=== PATIENT | male | born 1960 | race Caucasian/White ===

== ENCOUNTER 2018-02-10 03:46 | Emergency (ER) | payer BC, MEDICAID ==
[2018-02-10 04:03] VITALS: BP 160/72
--- NOTE | 2018-02-10 04:28 | EDM.PDOC ---
ED HPI GENERAL MEDICAL PROBLEM - General Chief Complaint: General Stated Complaint: drooling Time Seen by Provider: 02/10/18 04:10 Source of Information: Reports: Patient History Limitations: Reports: No Limitations, Other - History of Present Illness INITIAL COMMENTS - FREE TEXT/NARRATIVE: Patient is a 57-year-old gentleman with known history of a CVA back in October 2017 comes in stating that he has a hard time swallowing his saliva and is drooling at the type patient was evaluated his swallowing mechanism appeared intact able to swallow water at his own secretion with no difficulty Onset: Gradual Duration: Hour(s):, Constant Location: Reports: Generalized Improves with: Reports: None Worsens with: Reports: None Context: Reports: Other (Old CVA) - Related Data Allergies Allergy/AdvReac Type Severity Reaction Status Date / Time No Known Drug Allergies Allergy Other Verified 02/10/18 04:03 Home Meds: Home Meds Albuterol [Ventolin HFA] 2 puff INH Q4H PRN 10/22/17 [History] Aspirin [Kavon Chewable Aspirin] 81 mg PO DAILY 01/04/18 [History] atorvaSTATin [Lipitor] 40 mg PO DAILY 01/04/18 [History] Lisinopril 10 mg PO DAILY 02/09/18 [History] Past Medical History - Past Health History Medical/Surgical History: Denies Medical/Surgical History HEENT History: Reports: Hard of Hearing, Impaired Vision Other HEENT History: Right-sided chronic hearing loss secondary to previous otitis media or infection, patient wears glasses Cardiovascular History: Reports: High Cholesterol, Other (See Below) Other Cardiovascular History: Patient states he has a hole in his heart that needs to be repaired. Respiratory History: Reports: COPD Gastrointestinal History: Reports: Colon Polyp Other Gastrointestinal History: Multiple polypectomies of unknown type as below Genitourinary History: Reports: None Musculoskeletal History: Reports: Arthritis, Back Pain, Chronic, Fracture, Osteoarthritis, Other (See Below) Other Musculoskeletal History: Right ankle fracture in 1989, spina bifida occulta in L5-S1 region Neurological History: Reports: CVA, Headaches, Chronic Other Neuro History: Chronic tension headaches which occur about every 3 months with previous negative CT scan of the head Psychiatric History: Reports: None Endocrine/Metabolic History: Reports: None Hematologic History: Reports: None Immunologic History: Reports: None Oncologic (Cancer) History: Reports: None Dermatologic History: Reports: None - Infectious Disease History Infectious Disease History: Reports: None Other Infectious Disease History: does not think that he did. - Past Surgical History HEENT Surgical History: Reports: Adenoidectomy, Oral Surgery, Tonsillectomy, Other (See Below) Cardiovascular Surgical History: Reports: None Respiratory Surgical History: Reports: None GI Surgical History: Reports: Appendectomy, Colonoscopy, Polypectomy Male Surgical History: Reports: None Endocrine Surgical History: Reports: None Neurological Surgical History: Reports: None Oncologic Surgical History: Reports: None Dermatological Surgical History: Reports: None - Past Imaging History Past Imaging History: Reports: CAT Scan Social & Family History - Family History Family Medical History: Noncontributory Cardiac: Reports: Bypass Endocrine/Metabolic: Reports: IDDM - Tobacco Use Smoking Status *Q: Former Smoker Years of Tobacco use: 42 Packs/Tins Daily: 2 Used Tobacco, but Quit: Yes Month/Year Tobacco Last Used: 2013 Second Hand Smoke Exposure: No - Caffeine Use Caffeine Use: Reports: Coffee, Energy Drinks, Soda, Tea - Alcohol Use Days Per Week of Alcohol Use: 0 - Recreational Drug Use Recreational Drug Use: No Drug Use in Last 12 Months: No - Living Situation & Occupation Living situation: Reports: , Alone Occupation: Employed ED ROS GENERAL - Review of Systems Review Of Systems: See Below Constitutional: Reports: No Symptoms HEENT: Reports: Other (Complains of increased saliva and difficulty swallowing) Respiratory: Reports: No Symptoms Cardiovascular: Reports: No Symptoms Endocrine: Reports: No Symptoms GI/Abdominal: Reports: No Symptoms : Reports: No Symptoms Musculoskeletal: Reports: No Symptoms Skin: Reports: No Symptoms Neurological: Reports: No Symptoms, Other Psychiatric: Reports: Anxiety Hematologic/Lymphatic: Reports: No Symptoms ED EXAM, GENERAL - Physical Exam Exam: See Below Exam Limited By: No Limitations General Appearance: Alert, WD/WN, Anxious Eye Exam: Bilateral Eye: EOMI, PERRL Ears: Normal External Exam, Normal Canal, Hearing Grossly Normal, Normal TMs Ear Exam: Bilateral Ear: Auricle Normal, Canal Normal, TM normal Nose: Normal Inspection, Normal Mucosa, No Blood Throat/Mouth: Normal Inspection, Normal Lips, Normal Teeth, Normal Gums, Normal Oropharynx, Normal Voice, No Airway Compromise Head: Atraumatic, Normocephalic Neck: Normal Inspection, Supple, Non-Tender, Full Range of Motion, Other ( Excellent swallowing mechanism) Respiratory/Chest: No Respiratory Distress, Lungs Clear, Normal Breath Sounds, No Accessory Muscle Use, Chest Non-Tender Cardiovascular: Normal Peripheral Pulses, Regular Rate, Rhythm, No Edema, No Gallop, No JVD, No Murmur, No Rub GI/Abdominal: Normal Bowel Sounds, Soft, Non-Tender, No Organomegaly, No Distention, No Abnormal Bruit, No Mass (Male) Exam: Deferred Rectal (Males) Exam: Deferred Back Exam: Normal Inspection, Full Range of Motion, NT Extremities: Normal Inspection, Normal Range of Motion, Non-Tender, Normal Capillary Refill, No Pedal Edema Neurological: Alert, Oriented, CN II-XII Intact, Normal Cognition, Normal Gait, Normal Reflexes, No Motor/Sensory Deficits Psychiatric: Anxious Skin Exam: Warm, Dry, Intact, Normal Color, No Rash Lymphatic: No Adenopathy Course - Vital Signs Last Recorded V/S: Last Vital Signs Temp 97.6 F 02/10/18 03:55 Pulse 61 02/10/18 03:55 Resp 16 02/10/18 03:55 BP 160/72 H 02/10/18 03:55 Pulse Ox 97 02/10/18 03:55 Departure - Departure Time of Disposition: 04:29 Disposition: Home, Self-Care 01 Condition: Good Clinical Impression: Anxiety about health - Discharge Information Referrals: Linda Reza MD [Primary Care Provider] - Care Plan Goals: Patient will be sent home no CT required at this time required at this time we' ll follow-up with primary will refer to speech pathology for swallowing eval
== END 2018-02-10 04:40 | disposition home or self-care (01) ==
LOC: LL.ED 03:46
DX: F41.9 Anxiety disorder, unspecified (principal); E78.00 Pure hypercholesterolemia, unspecified; J44.9 Chronic obstructive pulmonary disease, unspecified; Z86.73 Personal history of transient ischemic attack (TIA), and cerebral infarction without residual deficits; Z79.899 Other long term (current) drug therapy; Z79.82 Long term (current) use of aspirin; Z90.49 Acquired absence of other specified parts of digestive tract; Z87.891 Personal history of nicotine dependence
CPT/HCPCS: 99283

== ENCOUNTER 2018-03-12 17:23 | Emergency (ER) | payer BC, MEDICAID ==
[2018-03-12 17:48] VITALS: BP 134/64
[2018-03-12] MEDS ORDERED: Ketorolac 60 MG/2 ML SDV IM ONE (18:20)
--- NOTE | 2018-03-12 19:42 | EDM.PDOC ---
ED HPI GENERAL MEDICAL PROBLEM - General Chief Complaint: Headache Stated Complaint: headache Time Seen by Provider: 03/12/18 18:10 Source of Information: Reports: Patient History Limitations: Reports: No Limitations - History of Present Illness INITIAL COMMENTS - FREE TEXT/NARRATIVE: Patient comes in with migraine headache in the occipital area and neck; patient has had history of migraines in the past Onset: Sudden Duration: Hour(s):, Getting Worse Location: Reports: Head Quality: Reports: Ache, Pressure Severity: Moderate Improves with: Reports: Medication Worsens with: Reports: None Context: Reports: Other (Stress) Associated Symptoms: Reports: No Other Symptoms 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, 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 Headache Pain Score (Numeric/FACES): 6 - Related Data Allergies Allergy/AdvReac Type Severity Reaction Status Date / Time No Known Drug Allergies Allergy Other Verified 02/28/18 07:34 Home Meds: Home Meds Albuterol [Ventolin HFA] 2 puff INH Q4H PRN 10/22/17 [History] Aspirin [Kavon Chewable Aspirin] 81 mg PO DAILY 01/04/18 [History] atorvaSTATin [Lipitor] 40 mg PO DAILY 01/04/18 [History] Lisinopril 10 mg PO DAILY 02/09/18 [History] Past Medical History - Past Health History Medical/Surgical History: Denies Medical/Surgical History HEENT History: Reports: Hard of Hearing, Impaired Vision, Other (See Below) Other HEENT History: Right-sided chronic hearing loss secondary to previous otitis media or infection, patient wears glasses Cardiovascular History: Reports: High Cholesterol, Other (See Below) Other Cardiovascular History: Patient states he has a hole in his heart that needs to be repaired. Respiratory History: Reports: COPD Gastrointestinal History: Reports: Colon Polyp Other Gastrointestinal History: Multiple polypectomies of unknown type as below Genitourinary History: Reports: None Musculoskeletal History: Reports: Arthritis, Back Pain, Chronic, Fracture, Osteoarthritis, Other (See Below) Other Musculoskeletal History: Right ankle fracture in 1989, spina bifida occulta in L5-S1 region Neurological History: Reports: CVA, Headaches, Chronic, Other (See Below) Other Neuro History: Chronic tension headaches which occur about every 3 months with previous negative CT scan of the head Psychiatric History: Reports: None Endocrine/Metabolic History: Reports: None Hematologic History: Reports: None Immunologic History: Reports: None Oncologic (Cancer) History: Reports: None Dermatologic History: Reports: None - Infectious Disease History Infectious Disease History: Reports: None Other Infectious Disease History: does not think that he did. - Past Surgical History HEENT Surgical History: Reports: Adenoidectomy, Oral Surgery, Tonsillectomy GI Surgical History: Reports: Appendectomy, Colonoscopy, Polypectomy - Past Imaging History Past Imaging History: Reports: CAT Scan Social & Family History - Family History Family Medical History: Noncontributory Cardiac: Reports: Bypass Endocrine/Metabolic: Reports: IDDM - Tobacco Use Smoking Status *Q: Former Smoker Used Tobacco, but Quit: Yes Month/Year Tobacco Last Used: 10/21/2014 - Caffeine Use Caffeine Use: Reports: Coffee, Energy Drinks, Soda, Tea - Living Situation & Occupation Living situation: Reports: , Alone Occupation: Employed ED ROS GENERAL - Review of Systems Review Of Systems: ROS reveals no pertinent complaints other than HPI. Constitutional: Reports: Other (headache) - Physical Exam Exam: See Below General Appearance: Alert, WD/WN, No Apparent Distress Ears: Normal External Exam, Normal Canal, Hearing Grossly Normal, Normal TMs Nose: Normal Inspection, Normal Mucosa, No Blood Throat/Mouth: Normal Inspection, Normal Lips, Normal Teeth, Normal Gums, Normal Oropharynx, Normal Voice, No Airway Compromise Head Exam: Atraumatic, Normocephalic Neck: Limited Range of Motion, Tender Lateral Respiratory/Chest: No Respiratory Distress, Lungs Clear, Normal Breath Sounds, No Accessory Muscle Use, Chest Non-Tender Cardiovascular: Normal Peripheral Pulses, Regular Rate, Rhythm, No Edema, No Gallop, No JVD, No Murmur, No Rub GI/Abdominal: Normal Bowel Sounds, Soft, Non-Tender, No Organomegaly, No Distention, No Abnormal Bruit, No Mass (Male) Exam: Deferred Rectal (Males) Exam: Deferred Neuro Exam (Abbreviated): Alert, Oriented, CN II-XII Intact, Normal Cognition, Other (Migraine headache) Back Exam: Normal Inspection, Full Range of Motion, NT Extremities: Normal Inspection, Normal Range of Motion, Non-Tender, No Pedal Edema, Normal Capillary Refill Psychiatric: Normal Affect, Normal Mood Skin Exam: Warm, Dry, Intact, Normal Color, No Rash Course - Vital Signs Last Recorded V/S: Last Vital Signs Temp Pulse 67 03/12/18 17:47 Resp 14 03/12/18 17:47 BP 134/64 03/12/18 17:47 Pulse Ox 100 03/12/18 17:47 - Orders/Labs/Meds Meds: Medications Discontinued Medications Generic Name Dose Route Start Last Admin Trade Name Adis PRN Reason Stop Dose Admin Diazepam 5 mg 03/12/18 18:13 03/12/18 18:31 Valium IM 03/12/18 18:14 Not Given ONETIME ONE Ketorolac Tromethamine 60 mg 03/12/18 18:20 03/12/18 18:30 Toradol IM 03/12/18 18:21 60 mg ONETIME ONE Administration Departure - Departure Time of Disposition: 19:40 Disposition: Home, Self-Care 01 Condition: Good Clinical Impression: Migraine - Discharge Information Instructions: Ketorolac injection, Recurrent Migraine Headache Referrals: Linda Reza MD [Primary Care Provider] - Forms: ED Department Discharge Care Plan Goals: Follow up with your regular doctor as needed for migraines or headaches. Go home and rest tonight.
== END 2018-03-12 19:00 | disposition home or self-care (01) ==
LOC: LL.ED 17:23
DX: G43.909 Migraine, unspecified, not intractable, without status migrainosus (principal); J44.9 Chronic obstructive pulmonary disease, unspecified; E78.00 Pure hypercholesterolemia, unspecified; Z79.82 Long term (current) use of aspirin; Z79.899 Other long term (current) drug therapy; Z87.891 Personal history of nicotine dependence
CPT/HCPCS: 99283; J1885; 96372

== ENCOUNTER 2021-05-15 09:55 | Emergency (ER) | payer OTHER, BC ==
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
[2021-05-15 10:38] LABS: CHLORIDE,CL 109 mmol/L (98-107); SODIUM,NA 143 mmol/L (136-145)
[2021-05-15 10:39] LABS: ANION GAP 11.1 meq/L (7-15)
[2021-05-15] MEDS: Albuterol 0.083% 2.5 MG/3 ML Neb Soln NEB ONE (10:58)
== END 2021-05-15 12:15 | disposition home or self-care (01) ==
LOC: LL.ED 09:55 → SUPCPDRO 09:55 → LL.ED 12:15
DX: S16.1XXA Strain of muscle, fascia and tendon at neck level, initial encounter (principal); E78.00 Pure hypercholesterolemia, unspecified; I10 Essential (primary) hypertension; J44.9 Chronic obstructive pulmonary disease, unspecified; Z86.73 Personal history of transient ischemic attack (TIA), and cerebral infarction without residual deficits; Z87.891 Personal history of nicotine dependence; V47.5XXA Car driver injured in collision with fixed or stationary object in traffic accident, initial encounter; Y92.009 Unspecified place in unspecified non-institutional (private) residence as the place of occurrence of the external cause
CPT/HCPCS: 36415; 70450; 72125; 80053; 83735; 84484; 85025; 85610; 93005; 93010; 94640; 99284; 99284-25; J7613-GY

== ENCOUNTER 2023-03-03 15:12 | Emergency (ER) | payer BC, MEDICAID, SELFPAY ==
[2023-03-03 15:15] VITALS: BP 159/63; PULSE 71
== END 2023-03-03 15:55 | disposition home or self-care (01) ==
LOC: SUPCPDRO 15:12 → LL.ED 15:12
DX: H60.5 Acute noninfective otitis externa (principal); E78.00 Pure hypercholesterolemia, unspecified; I10 Essential (primary) hypertension; J44.9 Chronic obstructive pulmonary disease, unspecified; Z86.73 Personal history of transient ischemic attack (TIA), and cerebral infarction without residual deficits; Z79.82 Long term (current) use of aspirin; Z79.899 Other long term (current) drug therapy; Z87.891 Personal history of nicotine dependence
CPT/HCPCS: 99282